=== PATIENT | male | born 1950 | race African-American/Black ===

== ENCOUNTER 2022-11-29 12:46 | Emergency (ER) | payer BC, OTHER ==
[~2022-11-29] VITALS: Ht 170.2 cm; Wt 77.3 kg
[2022-11-29 12:56] VITALS: BP 129/80
== END 2022-11-30 05:43 | disposition left against medical advice (07) ==
LOC: ER 12:46 → EDBD 12:46 → ER 11-30 05:43
DX: F10.129 Alcohol abuse with intoxication, unspecified (principal); R94.31 Abnormal electrocardiogram [ECG] [EKG]; Y90.8 Blood alcohol level of 240 mg/100 ml or more
CPT/HCPCS: 36415; 80320; 93005